=== PATIENT | male | born 1965 | race Caucasian/White ===

== ENCOUNTER 2018-04-27 16:24 | Observation (INO) | payer OTHER ==
[~2018-04-27] VITALS: Ht 167.6 cm; Wt 69.8 kg
[2018-04-27] MEDS ORDERED: HYDROmorphONE 1 MG/ML SYG IV STA ×2 (16:41→18:17)
[2018-04-27] MEDS ORDERED: ASPIRIN 325 MG TAB PO STA (16:41)
[2018-04-27] MEDS ORDERED: NITROGLYCERIN 2% 1 GM OINT PKT TD STA (16:41)
[2018-04-27] MEDS ORDERED: ONDANSETRON 4 MG INJ IV STA ×2 (16:41→18:17)
[2018-04-27] MEDS ORDERED: NITROGLYCERIN (SL) 0.4 MG TAB SL PRN ×2 (17:00→19:30)
[2018-04-27] MEDS ORDERED: NIFE30TA23 PO (17:20)
[2018-04-27] MEDS ORDERED: TYL500 PO (17:21)
--- NOTE | 2018-04-27 17:53 | ERD ---
ER Documentation Chief Complaint Chief Complaint mid-CP [id number] rad R arm, SOB: onset driving. reproducible. hx HTN HPI This is a 52-year-old male with a history of smoking, hypertension and high cholesterol who was driving just prior to arrival and developed some substernal chest pressure radiating to his neck and shoulders shortness of breath and some diaphoresis. This pain is been constant waxing and waning since then. He says he was admitted to [place] [facility] in early March 2018 but did not have any diagnostic cardiology testing done. His pain is right now moderate to severe in nature. No syncope no pain in the shoulder blades or abdomen ROS All systems reviewed and are negative except as per history of present illness. Medications Home Meds Reported Medications Acetaminophen* (Tylenol*) 500 Mg Tab, 1000 MG PO NEEDED PRN for PAIN AND OR ELEVATED TEMP, TAB 04/27/18 Nifedipine* (Nifedipine ER*) 30 Mg Tablet.sa, 30 MG PO DAILY, TAB.SA 04/27/18 Allergies Allergies: Coded Allergies: No Known Allergy (Unverified , 04/27/18) FmHx Family History: No coronary disease Physical Exam Vitals Vital Signs Date Temp Pulse Resp B/P (MAP) Pulse Ox O2 O2 Flow FiO2 Time Delivery Rate 04/27/18 94 18 141/102 96 Nasal 2.0 16:51 (115) Cannula 04/27/18 Nasal 2 16:40 Cannula 04/27/18 97.5 105 22 169/113 97 16:28 (131) Physical Exam Const: Well-developed, well-nourished Head: Atraumatic, normocephalic Eyes: Normal Conjunctiva, PERRLA, EOMI, normal sclera, no nystagmus ENT: Normal External Ears, Nose and Mouth, moist mucus membranes. Neck: Full range of motion. No meningismus, no lymphadenopathy. Resp: Clear to auscultation bilaterally, no wheezing, rhonchi, rales Cardio: Regular rate and rhythm, no murmurs, S1 S2 present Abd: Soft, non tender x 4, non distended. Normal bowel sounds, no guarding or rebound, no pulsitile abdominal masses or bruits Skin: No petechiae or rashes, no ecchymosis , no maculopapular rash Back: No midline or flank tenderness Ext: No cyanosis, or edema, FROM x 4, normal inspection, neurovascularly intact x 4 Neur: Awake and alert, STR 5/5 x 4, sensation intact x 4, no focal findings, cerebellum intact Psych: Normal Mood and Affect Result Diagram: 04/27/18 1647 04/27/18 1647 Results 24 hrs Laboratory Tests Test 04/27/18 16:47 White Blood Count 10.9 10^3/ul Red Blood Count 5.41 10^6/ul Hemoglobin 17.1 g/dl Hematocrit 49.6 % Mean Corpuscular Volume 91.7 fl Mean Corpuscular Hemoglobin 31.6 pg Mean Corpuscular Hemoglobin Concent 34.5 g/dl Red Cell Distribution Width 12.2 % Platelet Count 296 10^3/UL Mean Platelet Volume 9.1 fl Immature Granulocytes % 0.200 % Neutrophils % 48.4 % Lymphocytes % 41.0 % Monocytes % 9.1 % Eosinophils % 0.9 % Basophils % 0.4 % Nucleated Red Blood Cells % 0.0 /100WBC Immature Granulocytes # 0.020 10^3/ul Neutrophils # 5.3 10^3/ul Lymphocytes # 4.5 10^3/ul Monocytes # 1.0 10^3/ul Eosinophils # 0.1 10^3/ul Basophils # 0.0 10^3/ul Nucleated Red Blood Cells # 0.0 10^3/ul Prothrombin Time 11.8 Sec Prothrombin Time Ratio 0.9 INR International Normalized Ratio 0.86 Activated Partial Thromboplast Time 31.8 Sec Sodium Level 142 mmol/L Potassium Level 3.6 mmol/L Chloride Level 102 mmol/L Carbon Dioxide Level 21 mmol/L Anion Gap 19 Blood Urea Nitrogen 20 mg/dl Creatinine 0.97 mg/dl Est Glomerular Filtrat Rate mL/min > 60 mL/min Glucose Level 265 mg/dl Calcium Level 10.5 mg/dl Total Bilirubin 0.4 mg/dl Direct Bilirubin 0.00 mg/dl Indirect Bilirubin 0.4 mg/dl Aspartate Amino Transf (AST/SGOT) 28 IU/L Alanine Aminotransferase (ALT/SGPT) 37 IU/L Alkaline Phosphatase 146 IU/L Troponin I < 0.012 ng/ml Total Protein 8.8 g/dl Albumin 5.3 g/dl Globulin 3.50 g/dl Albumin/Globulin Ratio 1.51 Current Medications Medications Dose Sig/Nicola Start Time Status Last (Trade) Ordered Route PRN Stop Time Admin Dose Reason Admin Aspirin 325 mg ONCE STAT 04/27/18 DC 04/27/18 (Aspirin) PO 16:41 16:48 04/27/18 16:43 1 inch ONCE STAT 04/27/18 DC 04/27/18 Nitroglycerin TD 16:41 16:48 04/27/18 16:43 (Nitroglyceri n 2% Oint) 1 tab Q5M UP TO 3 04/27/18 04/27/18 Nitroglycerin DOSES PRN 17:00 16:48 SL .CHEST (Nitroglyceri PAIN n (Sl Tab) 0.4 Mg) 1 mg ONCE STAT 04/27/18 DC 04/27/18 Hydromorphone IV 16:41 16:48 HCl 04/27/18 16:43 (Dilaudid) Ondansetron 4 mg ONCE STAT 04/27/18 DC 04/27/18 HCl (Zofran IV 16:41 16:48 Inj) 04/27/18 16:43 Procedures/MDM Ordering MD: CARISSA ARMAS DO Location: E/R Room/Bed: PROCEDURE: XR Chest. CLINICAL INDICATION: Chest pain TECHNIQUE: Single portable view of the chest was obtained COMPARISON: None FINDINGS: The heart and mediastinum are within normal limits. There are mild bibasilar atelectatic changes. The lungs are otherwise clear. There is no pleural effusion or pneumothorax. There is increased lucency underneath the left diaphragm, likely represents the splenic flexure. RPTAT: AA IMPRESSION: Mild bibasilar atelectatic changes. .Adam Keene MD, MD Date Time Electronically viewed and signed by .Adam Keene MD, on 04/27/2018 17:37 .S/ CC: CARISSA ARMAS DO [id number] EKG: Rate/Rhythm: Sinus tachycardia heart rate 101, inferior ST depression in the inferior leads QRS, ST, QT: NORMAL DE, QRS, QT] Impression: Abnormal EKG Patient received aspirin, nitro sublingual, nitro paste with Dilaudid. Pain is gone. Patient has an abnormal and suspicious EKG for an inferior coronary artery issue. Will admit. Cardiac Admit MDM: Patient's symptoms are concerning for cardiac cause will require inpatient workup and continuous monitoring. Further w/u for ischemia, arrhythmia, PE or dissection will be deferred to the inpatient team. Departure Diagnosis: Primary Impression: Chest pain Chest pain type: unspecified Qualified Codes: R07.9 - Chest pain, unspecified Condition: Stable CARISSA ARMAS DO Apr 27, 2018 17:53
[2018-04-27] MEDS ORDERED: ONDANSETRON 4 MG INJ IV PRN ×2 (18:00→19:30)
[2018-04-27] MEDS ORDERED: ACETAMINOPHEN 325 MG TAB PO PRN ×2 (18:00→19:30)
[2018-04-27] MEDS ORDERED: SOD CHLORIDE 0.9% 1,000 ML IV SCH (19:06)
[2018-04-27] MEDS ORDERED: morphine 2 MG INJ IV PRN (19:30)
[2018-04-27] MEDS ORDERED: MAGNESIUM HYDROXIDE 30ML CUP PO PRN (19:30)
[2018-04-27] MEDS ORDERED: NACL 0.9% 3 ML SYG IV SCH (19:30)
[2018-04-27] MEDS ORDERED: HYDROCODONE/APAP (5/325) TAB PO PRN (19:30)
[2018-04-27] MEDS ORDERED: DOCUSATE SODIUM 100 MG CAP PO PRN (19:30)
--- NOTE | 2018-04-27 20:40 | HP ---
Date/Time of Note Date/Time of Note DATE: 04/27/18 TIME: 20:39 Assessment/Plan VTE Prophylaxis SCD applied (from Nsg): Yes Pharmacological prophylaxis: LMWH Lines/Catheters IV Catheter Type (from Nrsg): Saline Lock Assessment/Plan Hospital Course This is a 52 year old male who was admitted to the tele floor: #1: STEMI: repeat ekg shows evidence of ST elevations in V2 and V3. Stat nitro and morphine given. ASA was given in the ED. I spoke with [facility] ED physician Dr. Peres and faxed the EKG. Patient was accepted for transfer to their laborer powerhouse for emergent intervention. 911 was called and patient was taken emergently to [place]. cardiac enzymes, a1c, lipid panel and tsh are pending. #2 Chest pain: originally admitted to rule out ACS with inital troponin negative. please see #1 #3 htn: on nifedipine #4 Dvt and gi prophylaxis: lovenox, no gi prophylaxis indicated Dispo: Transferred via 911 ambulance to [place] emergently to the Support Services Specialist. Result Diagram: 04/27/18 1647 04/27/18 1647 Results 24hrs Laboratory Tests Test 04/27/18 16:46 04/27/18 16:47 Hemoglobin A1c 9.6 H White Blood Count 10.9 H Red Blood Count 5.41 Hemoglobin 17.1 Hematocrit 49.6 Mean Corpuscular Volume 91.7 Mean Corpuscular Hemoglobin 31.6 Mean Corpuscular Hemoglobin Concent 34.5 Red Cell Distribution Width 12.2 Platelet Count 296 Mean Platelet Volume 9.1 Immature Granulocytes % 0.200 Neutrophils % 48.4 Lymphocytes % 41.0 Monocytes % 9.1 Eosinophils % 0.9 Basophils % 0.4 Nucleated Red Blood Cells % 0.0 Immature Granulocytes # 0.020 Neutrophils # 5.3 Lymphocytes # 4.5 H Monocytes # 1.0 H Eosinophils # 0.1 Basophils # 0.0 Nucleated Red Blood Cells # 0.0 Prothrombin Time 11.8 L Prothrombin Time Ratio 0.9 INR International Normalized Ratio 0.86 Activated Partial Thromboplast Time 31.8 Sodium Level 142 Potassium Level 3.6 Chloride Level 102 Carbon Dioxide Level 21 Anion Gap 19 H Blood Urea Nitrogen 20 Creatinine 0.97 Est Glomerular Filtrat Rate mL/min > 60 Glucose Level 265 H Calcium Level 10.5 H Total Bilirubin 0.4 Direct Bilirubin 0.00 Indirect Bilirubin 0.4 Aspartate Amino Transf (AST/SGOT) 28 Alanine Aminotransferase (ALT/SGPT) 37 Alkaline Phosphatase 146 H Troponin I < 0.012 Total Protein 8.8 H Albumin 5.3 H Globulin 3.50 H Albumin/Globulin Ratio 1.51 HPI/ROS Admit Date/Time Admit Date/Time Hx of Present Illness cc: chest pain This is a 52-year-old male with a history of smoking, hypertension and high cholesterol who was driving just prior to arrival and developed some substernal chest pressure radiating to his neck and shoulders shortness of breath and some diaphoresis. This pain is been constant waxing and waning since then. He says he was admitted to [facility] in early March 2018 but did not have any diagnostic cardiology testing done. His pain is right now moderate to severe in nature. No syncope no pain in the shoulder blades or abdomen. Prior to my examination patient reported chest pain again and a stat [facility] elevations V2, V3 allergy: nkda meds: see mar PMH/Family/Social Past Medical History htn Medications Current Medications Nitroglycerin (Nitroglycerin (Sl Tab) 0.4 Mg) 1 tab Q5M UP TO 3 DOSES PRN SL .CHEST PAIN Last administered on 04/27/18at 16:48; Admin Dose 1 TAB; Start 04/27/18 at 17:00 Ondansetron HCl (Zofran Inj) 4 mg ER BRIDGE PRN IV NAUSEA; Start 04/27/18 at 18:00; Stop 04/28/18 at 17:59 Acetaminophen (Tylenol Tab) 650 mg ER BRIDGE PRN PO FEVER; Start 04/27/18 at 18:00; Stop 04/28/18 at 17:59 Nifedipine (Procardia Xl) 30 mg DAILY PO ; Start 04/28/18 at 09:00 Sodium Chloride 1,000 ml @ 75 mls/hr [id number] IV Last administered on 04/27/18at 19:29; Admin Dose 75 MLS/HR; Start 04/27/18 at 19:06 IV Flush (NS 3 ml) 3 ml PER PROTOCOL IV ; Start 04/27/18 at 19:30 Ondansetron HCl (Zofran Inj) 4 mg Q6H PRN IV NAUSEA/VOMITING; Start 04/27/18 at 19:30 Nitroglycerin (Nitroglycerin (Sl Tab) 0.4 Mg) 1 tab Q5M PRN SL .CHEST PAIN; Start 04/27/18 at 19:30 Acetaminophen (Tylenol Tab) 650 mg Q6H PRN PO .PAIN 1-3 OR TEMP; Start 04/27/18 at 19:30 Acetaminophen/ Hydrocodone Bitart ([place] (5/325)) 1 tab Q6H PRN PO .PAIN 4-6; Start 04/27/18 at 19:30 Morphine Sulfate (morphine) 2 mg Q4H PRN IV .PAIN 7-10; Start 04/27/18 at 19:30 Docusate Sodium (Colace) 100 mg Q12H PRN PO .CONSTIPATION; Start 04/27/18 at 19:30 Magnesium Hydroxide (Milk Of Mag) 30 ml DAILY PRN PO .CONSTIPATION; Start 04/27/18 at 19:30 Pantoprazole (Protonix Tab) 40 mg DAILY@06 PO ; Start 04/28/18 at 06:00 Enoxaparin Sodium (Lovenox) 40 mg DAILY SC ; Start 04/28/18 at 09:00 Aspirin (Aspirin) 81 mg DAILY PO ; Start 04/29/18 at 09:00 Coded Allergies: No Known Allergy (Unverified , 04/27/18) Past Surgical History Past Surgical Hx: no surgical history Family History Significant Family History: no pertinent family hx Social History Alcohol Use: occasionally Smoking Status: Current every day smoker Drug Use: none Exam/Review of Systems Vital Signs Vitals Vital Signs Date Temp Pulse Resp B/P (MAP) Pulse Ox O2 O2 Flow FiO2 Time Delivery Rate 04/27/18 97.5 92 18 146/109 97 Nasal 2.0 20:00 (121) Cannula Exam Additional Comments PROCEDURE: XR Chest. CLINICAL INDICATION: Chest pain TECHNIQUE: Single portable view of the chest was obtained COMPARISON: None FINDINGS: The heart and mediastinum are within normal limits. There are mild bibasilar atelectatic changes. The lungs are otherwise clear. There is no pleural effusion or pneumothorax. There is increased lucency underneath the left diaphragm, likely represents the splenic flexure. RPTAT: AA IMPRESSION: Mild bibasilar atelectatic changes. .Adam Keene MD, MD Date Time Electronically viewed and signed by .Adam Keene MD, MD on 04/27/2018 17:37 .S/ CC: CARISSA ARMAS DO [id number] NOREEN WYNN Apr 27, 2018 20:40
[2018-04-27 20:56] VITALS: PULSE 98
[2018-04-27 21:00] VITALS: BP 139/95; PULSE 98; RESP 18; Ht 167.6 cm; Wt 69.8 kg
--- NOTE | 2018-04-27 21:00 | NUR ---
Pt is a 52-year-old male with a history of smoking, hypertension and high cholesterol who was driving just prior to arrival and developed some substernal chest pressure radiating to his neck and shoulders shortness of breath and some diaphoresis. Dr Salter saw pt, checked EKG results and concluded a STEMI pt, with ST elevation on V2 & V3, needs a bottle labeler, so call 911 & tranferred to [facility] via EMS. Morphine 2 mg IVP & Nitro SL x3, 5 min apart for 15 min was given, but no avail, V/S stable 139/95.R =98, RR=18.
[2018-04-27] MEDS ORDERED: morphine 4 MG/ML VIAL IV PRN (22:00)
[2018-04-27] MEDS ORDERED: morphine 4 MG/ML VIAL IV STA (22:36)
--- NOTE | 2018-04-27 22:38 | DS ---
Date/Time of Note Date/Time of Note DATE: 04/27/18 TIME: 22:35 Discharge Summary Admission/Discharge Info Admit Date/Time Apr 27, 2018 at 17:50 Discharge Date/Time 04/27/2018 Discharge Diagnosis STEMI HTN Patient Condition: Serious Hx of Present Illness cc: chest pain This is a 52-year-old male with a history of smoking, hypertension and high cholesterol who was driving just prior to arrival and developed some substernal chest pressure radiating to his neck and shoulders shortness of breath and some diaphoresis. This pain is been constant waxing and waning since then. He says he was admitted to [facility] in early March 2018 but did not have any diagnostic cardiology testing done. His pain is right now moderate to severe in nature. No syncope no pain in the shoulder blades or abdomen. Prior to my examination patient reported chest pain again and a stat EKG was done [facility] showed new ST elevations V2, V3 allergy: nkda meds: see mar Hospital Course This is a 52 year old male who was admitted to the tele floor: #1: STEMI: repeat ekg shows evidence of ST elevations in V2 and V3. Stat nitro and morphine given. ASA was given in the ED. I spoke with [facility] ED physician Dr. Peres and faxed the EKG. Patient was accepted for transfer to their labor delivery specialist for emergent intervention. 911 was called and patient was taken emergently to [place]. cardiac enzymes, a1c, lipid panel and tsh are pending. #2 Chest pain: originally admitted to rule out ACS with inital troponin negative. please see #1 #3 htn: on nifedipine #4 Dvt and gi prophylaxis: lovenox, no gi prophylaxis indicated Dispo: Transferred via 911 ambulance to [place] emergently to the Textile Designer. Hospital course: patient was admitted to the floor for chest pain rule out. ASA was given in the ED along with nitropatch. He reported pain on the inpatient floor. Stat EKG was done which showed ST elevations in V2, V3. I spoke with [facility] ED physician Dr. Peres and faxed the EKG. Patient was accepted for transfer to their labor delivery specialist for emergent intervention. 911 was called and patient was taken emergently to [place]. Risks and benefits were discussed with the patient prior to the transfer and patient was agreeable to transfer for specialized care. Home Meds Reported Medications Acetaminophen* (Tylenol*) 500 Mg Tab, 1000 MG PO NEEDED PRN for PAIN AND OR ELEVATED TEMP, TAB 04/27/18 Nifedipine* (Nifedipine ER*) 30 Mg Tablet.sa, 30 MG PO DAILY, TAB.SA 04/27/18 Follow-up Plan As per recommendations from primary team and registered nurse supervisor from [facility]. Primary Care Provider Care Physician No Primary Time spent on discharge: > 30 minutes Pending Labs Laboratory Tests Test 04/27/18 16:46 04/27/18 16:47 Hemoglobin A1c 9.6 % (0-5.9) White Blood Count 10.9 10^3/ul (4.8-10.8) Red Blood Count 5.41 10^6/ul (4.70-6.10) Hemoglobin 17.1 g/dl (14.0-18.0) Hematocrit 49.6 % (42.0-52.0) Mean Corpuscular Volume 91.7 fl (82.0-101.0) Mean Corpuscular Hemoglobin 31.6 pg (29.0-33.0) Mean Corpuscular Hemoglobin Concent 34.5 g/dl (32.0-37.0) Red Cell Distribution Width 12.2 % (11.5-14.5) Platelet Count 296 10^3/UL (140-415) Mean Platelet Volume 9.1 fl (7.4-10.4) Immature Granulocytes % 0.200 % (0.001-0.429) Neutrophils % 48.4 % (39.0-77.0) Lymphocytes % 41.0 % (15.0-51.0) Monocytes % 9.1 % (0.0-11.0) Eosinophils % 0.9 % (0.0-7.0) Basophils % 0.4 % (0.0-2.0) Nucleated Red Blood Cells % 0.0 /100WBC (0.0-0.0) Immature Granulocytes # 0.020 10^3/ul (0.0-0.031) Neutrophils # 5.3 10^3/ul (1.6-7.5) Lymphocytes # 4.5 10^3/ul (0.8-2.9) Monocytes # 1.0 10^3/ul (0.3-0.9) Eosinophils # 0.1 10^3/ul (0.0-0.5) Basophils # 0.0 10^3/ul (0.0-0.1) Nucleated Red Blood Cells # 0.0 10^3/ul (0.0-0.0) Prothrombin Time 11.8 Sec (11.9-14.9) Prothrombin Time Ratio 0.9 INR International Normalized Ratio 0.86 Activated Partial Thromboplast Time 31.8 Sec (23.0-35.0) Sodium Level 142 mmol/L (135-144) Potassium Level 3.6 mmol/L (3.5-5.1) Chloride Level 102 mmol/L (97-110) Carbon Dioxide Level 21 mmol/L (21-31) Anion Gap 19 (5-13) Blood Urea Nitrogen 20 mg/dl (7-20) Creatinine 0.97 mg/dl (0.61-1.24) Est Glomerular Filtrat Rate mL/min > 60 mL/min (>60) Glucose Level 265 mg/dl (70-220) Calcium Level 10.5 mg/dl (8.4-10.2) Total Bilirubin 0.4 mg/dl (0.2-1.3) Direct Bilirubin 0.00 mg/dl (0.00-0.20) Indirect Bilirubin 0.4 mg/dl (0-1.1) Aspartate Amino Transf (AST/SGOT) 28 IU/L (15-46) Alanine Aminotransferase (ALT/SGPT) 37 IU/L (13-69) Alkaline Phosphatase 146 IU/L (42-121) Troponin I < 0.012 ng/ml (0.000-0.120) Total Protein 8.8 g/dl (6.1-8.1) Albumin 5.3 g/dl (3.3-4.9) Globulin 3.50 g/dl (1.3-3.2) Albumin/Globulin Ratio 1.51 NOREEN WYNN Apr 27, 2018 22:38
[2018-04-28] MEDS ORDERED: PANTOPRAZOLE (EC) 40 MG TAB PO SCH (06:00)
[2018-04-28] MEDS ORDERED: ENOXAPARIN 40 MG/0.4 ML SYG SC SCH (09:00)
[2018-04-28] MEDS ORDERED: NIFEdipine (XL) 30 MG TAB PO SCH (09:00)
[2018-04-29] MEDS ORDERED: ASPIRIN 81 MG TAB PO SCH (09:00)
== END 2018-04-27 22:15 | disposition short-term general hospital (02) ==
LOC: E/R 16:24 → TEL 17:50
PROVIDERS: ADMIT Internal Medicine; ATTEND Internal Medicine
DX: I21.3 ST elevation (STEMI) myocardial infarction of unspecified site (principal); R07.9 Chest pain, unspecified; I10 Essential (primary) hypertension; I82.409 Acute embolism and thrombosis of unspecified deep veins of unspecified lower extremity; J98.11 Atelectasis
CPT/HCPCS: 36415; 71045; 80053; 83036; 84484; 85025; 85610; 85730; 93005; 96374; 96375; J1170; J2270; J2405; J7030; Z7500; Z7502; Z7610; G0378